=== PATIENT | female | born 1990 | race Caucasian/White ===

== ENCOUNTER → 2021-08-09 11:57 | Outpatient (BNVA) | payer OTHER, MEDICAID, SELFPAY | PROVIDERS: PCP Nurse Practitioner; Visit Provider Emergency Medicine | DX: J02.9 Acute pharyngitis, unspecified (principal); J30.2 Other seasonal allergic rhinitis; Z95.0 Presence of cardiac pacemaker; J35.8 Other chronic diseases of tonsils and adenoids | CPT/HCPCS: 87071; 87880 ==

== ENCOUNTER → 2021-10-16 10:54 | Outpatient (BNVA) | payer OTHER, SELFPAY | PROVIDERS: PCP Nurse Practitioner; Visit Provider Emergency Medicine | DX: R06.02 Shortness of breath (principal); I50.9 Heart failure, unspecified; I44.2 Atrioventricular block, complete | CPT/HCPCS: 71046; 83880 ==